=== PATIENT | female | born 1985 | race Caucasian/White ===

== ENCOUNTER 2023-08-28 20:51 | Emergency (ER) | payer BC, SELFPAY ==
[2023-08-28 20:51] VITALS: BMI 22.9
--- NOTE | 2023-08-28 23:50 | ED.GENMED ---
History of Present Illness
General
Chief Complaint: Ear Problem
Source: patient and spouse
Exam Limitations: none
Time Seen by Provider: 08/28/23 23:35
Nursing documentation reviewed up to this point in time: agreed with
Travel History
Have you had any contact with someone who has COVID-19?: No
Do you have any symptoms of coronavirus? Fever > 100 degrees, chills, cough, shortness of breath, sore throat, loss of taste or smell, muscle aches, or headache?: No
History of Present Illness
History of Present Illness:
The patient is a 38-year-old female who comes in with complaints of several days of cough and congestion. She reports she blew her nose and developed pressure in her right ear. Patient complains of severe pain in her right ear. She denies fever.
She denies pain behind her ear. Patient feels stuffiness in her right ear and decreased hearing.
Past History
Past History
ED Past Medical History: Other (Hypothyroidism)
ED Past Surgical History:
Social History
Tobacco: Other
Alcohol: Other
Drug: None
Personal:
Living: with family
Employment: Other
Family History
Family History: Other
Review of Systems
Review of Systems
Allergies reviewed?: Yes
All Other Systems: ROS reviewed and negative except as documented in HPI and ROS
Constitutional: Reports no symptoms
EENT: Reports runny nose and other
Respiratory: Reports no symptoms
Cardiac: Reports no symptoms
ABD/GI: Reports no symptoms
: Reports no symptoms
Musculoskeletal: Reports no symptoms
Skin: Reports no symptoms
Neurological: Reports no symptoms
Endocrine: Reports no symptoms
Hematologic/Lymphatic: Reports no symptoms
Psychiatric: Reports no symptoms
Phy Exam
Physical Exam
Physical Exam:
Physical Exam
General: Nontoxic and conversational but appears uncomfortable
Neck: supple. no meningeal signs. normal psoterior pharynx, TM appears bulging and erythematous. No swelling or erythema of soft tissue neck
Heart: s1/s2 regular rate and rhythm, no murmur. equal radial pulses.
Lungs: no acute respiratory distress. clear bilaterally
Abdomen: normal bowel sounds. not tender. no CVAT
Neuro: alert and oriented. no focal neurological deficits
Skin: no rash
Psychiatric: well kept. interactive and cooperative
Extremities: no edema. no calf tenderness. negative homans. good distal pulses
Course
Orders/Labs/Results
Orders:
Orders
08/28/23 23:48
Amoxicillin 875 mg/Clav 125 mg [Augmentin 875 mg/125 mg] 1 tablet PO NOW STA
Oxycodone/Acetaminophen [Percocet 5/325] 1 tablet PO NOW STA
08/29/23 00:10
Pseudoephedrine Extended Rel. [Sudafed 12 Hour (Extended Release)] 120 mg PO NOW STA
Vital Signs
Initial and Last Documented VS:
Initial Vital Signs
Temp Pulse Resp Pulse Ox
98.2 F 68 18 99
08/28/23 21:09 08/28/23 21:09 08/28/23 21:09 08/28/23 21:09
Last Documented Vital Signs
Temp Pulse Resp BP Pulse Ox
98.2 F 68 18 128/81 97
08/28/23 21:09 08/28/23 21:09 08/28/23 21:09 08/29/23 01:00 08/29/23 01:15
MDM/Problems Addressed
Differential Diagnosis Includes:
Tympanic membrane effusion, otitis media, ruptured TM
MDM/Problems Addressed:
Patient presents with cough, congestion and acute right ear pain
Acute Exacerbation and/or Progression of Chronic Illness: Immunosuppressed
*Pulse Oximetry
Patient hypoxic: no
*EKG
Interpreted by ED Provider?: NA
*Microfilm Mounter Interpretation
Rate: Microfilm Mounter- N/A
*Critical Care Note
Total Time (30-74mins, 75-104mins- exclusive of procedures): Not Applicable
Data Reviewed
Source: patient and spouse
Patient Management
Social determinants of health affecting care: Living situation and Strong social support
Escalation/DeEscalation of care consider admission/obs:
Clinically patient has acute right otitis media. She will be given Augmentin and encouraged to use Sudafed and Motrin for intense pressure. Patient encouraged to follow-up with ENT if symptoms are not improved in 48 hours. She has no sign of deep
neck space infection nor any sign of mastoiditis
ED Attending Note
-
Portions of this chart may have been created with voice recognition software.� Occasional wrong word or��sound alike� substitutions may have occurred due to the inherent limitations of voice recognition software.
Discharge Plan
Departure
Patient Disposition: Home (Routine Discharge)
Date of Disposition: 08/29/23
Time of Disposition: 01:01
Patient with high blood pressure during this ER visit?: Yes
Condition: Good
Covid-19: Not Applicable
Discharge Problem:
Acute otitis media, right
Instructions: Ear Infections (Otitis Media) in Adults (DC)
Prescriptions:
New
amoxicillin-pot clavulanate 875-125 mg tablet
1 tab PO BID Qty: 13 0RF
Referrals:
Doc Kathleen MD [Active] - (Call to see this week if not feeling better in 2-3 days)
NONE,* [Family Provider] -
Activity Restrictions/Additional Instructions:
Take 600 mg of Advil with food every 6-8 hours for pain. You can also take 1000 mg of Tylenol every 4-6 hours for pain, along with Advil, for pain.
Use Sudafed [id number] as directed.
Interventions
Interventions:
*Risk Screen - Suicide Last Done: 08/29/23 01:19
*General Assessment Last Done: 08/29/23 00:17
*Neglect/Abuse Screening Last Done: 08/29/23 01:19
ED- Fall Risk Assessment Last Done: 08/29/23 01:19
*ED COVID-19 Vaccine History Last Done: 08/28/23 21:10
*Nursing Disposition Last Done: 08/29/23 01:19
Discharge Date and Time
Discharge Date/Time: 08/29/23 01:22
Print Language: PUERTO RICAN
[2023-08-29] MEDS: PERCOCET 5/325 1 TABLET PO (00:13)
[2023-08-29] MEDS: AUGMENTIN 875 MG/125 MG 1 TABLET PO (00:14)
[2023-08-29 00:16] VITALS: BP 124/82
[2023-08-29] MEDS: SUDAFED 12 HOUR (EXTENDED RELEASE) 120 MG PO (00:38)
[2023-08-29 01:00] VITALS: BP 128/81
== END 2023-08-29 01:22 | disposition home or self-care (01) ==
LOC: EMR 20:51
PROVIDERS: EMERGENCY PHYSICIAN Emergency Medicine
DX: H66.91 Otitis media, unspecified, right ear (principal); R05.9 Cough, unspecified; R09.81 Nasal congestion; R03.0 Elevated blood-pressure reading, without diagnosis of hypertension; E03.9 Hypothyroidism, unspecified
CPT/HCPCS: 99283